=== PATIENT | female | born 1940 | race Caucasian/White ===

== ENCOUNTER 2016-10-14 06:46 | Day surgery (SDC) | payer MEDICARE ==
[2016-10-14 07:17] VITALS: RESP 16; TEMP 98.1
[2016-10-14] MEDS ORDERED: LACTATED RINGERS 1,000 ML IV ONE (07:29)
[2016-10-14] MEDS ORDERED: LIDOCAINE 1% 20 ML VIAL (10MG/ML) FOR IV START INTRADERMA ONE (07:29)
[2016-10-14] MEDS ORDERED: PROPOFOL 10 MG/ML 20 ML VIAL IV ONE (07:49)
--- NOTE | 2016-10-14 07:52 | P.GSHP ---
History of Present Illness H&P Date: 10/14/16 Chief Complaint: Screening colonoscopy This is a 68-year-old female referred from Dr. Solitario. Patient presents today for screening colonoscopy. Her last colonoscopy was prostate years ago. She's had some complaints of constipation. - Constitutional Constitutional: Reports as per HPI Medications and Allergies Home Medications Medication Instructions Recorded Confirmed Type Atorvastatin [Lipitor] 1 tab PO DAILY 10/14/16 10/14/16 History Allergies Allergy/AdvReac Type Severity Reaction Status Date / Time amoxicillin Allergy Unknown Verified 10/14/16 07:10 Surgical - Exam Vital Signs Temp Pulse Resp BP Pulse Ox 98.1 F 77 16 157/88 97 10/14/16 07:14 10/14/16 07:14 10/14/16 07:14 10/14/16 07:14 10/14/16 07:14 - General well developed, no distress - Eyes PERRL - ENT normal pinna - Neck no masses - Respiratory normal expansion - Cardiovascular Rhythm: regular - Abdomen Abdomen: soft, non tender Assessment and Plan Plan: We will perform screening colonoscopy.
--- NOTE | 2016-10-14 08:12 | P.OP ---
Date of Procedure: 10/14/16 Preoperative Diagnosis: Screening colonoscopy Postoperative Diagnosis: Diverticulosis External hemorrhoids Procedure(s) Performed: Colonoscopy Implants: Anesthesia: MAC Surgeon: Ace Quiñonez Pathology: none sent Condition: stable Disposition: PACU Indications for Procedure: Operative Findings: Description of Procedure: The patient's placed on the endoscopy table in the lateral position. She received IV sedation. Digital rectal exam was performed which revealed a few external hemorrhoids. The flexible colonoscope was then placed patient anus and passed throughout the entire colon. The ileocecal valve was visualized. The cecum, ascending and transverse colon appeared normal in the descending and sigmoid colon there is extensive diverticular changes. Scope was then brought back the rectum appeared normal. Scope was withdrawn for patient.
[2016-10-14] MEDS ORDERED: LIDOCAINE 1% 20 ML VIAL (10MG/ML) FOR IV START INTRADERMA PRN (08:23)
[2016-10-14] MEDS ORDERED: LACTATED RINGERS 1,000 ML IV SCH (08:23)
[2016-10-14 08:43] VITALS: BP 122/59; PULSE 72
== END 2016-10-14 08:57 | disposition home or self-care (01) ==
LOC: ORWHC2ENDO 06:46
PROVIDERS: ATTEND Surgery
DX: K57.30 Diverticulosis of large intestine without perforation or abscess without bleeding (principal); K64.4 Residual hemorrhoidal skin tags; E78.5 Hyperlipidemia, unspecified; Z87.891 Personal history of nicotine dependence; Z79.899 Other long term (current) drug therapy; Z88.0 Allergy status to penicillin
CPT/HCPCS: 45378; J2704

== ENCOUNTER → 2020-06-27 | Outpatient (CLI) | payer MEDICARE ==
--- NOTE | 2020-06-27 11:32 | CT ---
EXAMINATION TYPE: CT angio head neck DATE OF EXAM: 06/27/2020 HISTORY: Dizziness COMPARISON: None. CT DLP: Automated Exposure Control for Dose Reduction was Utilized. TECHNIQUE: CTA scan of the neck is performed , patient injected IV contrast, axial images are obtain ed, coronal and sagittal reformatted images are reviewed. Three-D reconstructed images are created on an independent workstation and reviewed. FINDINGS: Carotid/Vascular Structures: 70% stenosis of the right internal carotid artery at the origin secondar y to thick circumferential calcified plaque. 10% stenosis of the left internal carotid artery seconda ry to minimal atherosclerotic disease. There is direct origin of the left vertebral artery and is the dominant artery. Atherosclerotic plaqu e is seen in the distal third of the left vertebral artery. Proximal half of the right vertebral tony ry is not seen. There is no evidence of dural venous sinus thrombosis. There is 20-30% stenosis of the right subclavian artery secondary to atherosclerotic plaque at the or igin. There is no evidence of large vessel occlusion. No cerebral artery stenosis or dissection is seen. Th ere is no cerebral artery aneurysm. Anterior cerebral artery, middle cerebral artery, and posterior c erebral artery are patent. Other: No enhancing masses identified. IMPRESSION: 70% stenosis of the right internal carotid artery at the origin secondary to thick circum ferential plaque. Proximal half of the right vertebral artery is not visualized. Carotid Doppler exam ination is recommended. Specialist consultation is also recommended.
== END | disposition home or self-care (01) ==
LOC: RADCTMAIN 07:42
PROVIDERS: ATTEND Psychiatry & Neurology Neurology
DX: I65.21 Occlusion and stenosis of right carotid artery (principal)
CPT/HCPCS: 82565; 84520; 70496; 70498; 36415; Q9967

== ENCOUNTER → 2020-10-07 | Outpatient (CLI) | payer MEDICARE ==
--- NOTE | 2020-10-07 13:49 | US ---
EXAMINATION TYPE: US carotid duplex BILAT DATE OF EXAM: 10/07/2020 COMPARISON: 06/27/2020 CTA CLINICAL HISTORY: R42 Dizziness and giddiness; I65.21. dizziness. Memory loss. EXAM MEASUREMENTS: RIGHT: Peak Systolic Velocity (PSV) cm/sec ----- Right CCA: 58.5 ----- Right ICA: 116.0 ----- Right ECA: 69.5 ICA/CCA ratio: 2.0 RIGHT: End Diastole cm/sec ----- Right CCA: 15.6 ----- Right ICA: 31.2 ----- Right ECA: 4.6 LEFT: Peak Systolic Velocity (PSV) cm/sec ----- Left CCA: 77.3 ----- Left ICA: 88.1 ----- Left ECA: 77.6 ICA/CCA ratio: 1.1 LEFT: End Diastole cm/sec ----- Left CCA: 22.1 ----- Left ICA: 30.3 ----- Left ECA: 2.3 VERTEBRALS (direction of flow): Right Vertebral: Antegrade Left Vertebral: Antegrade Rhythm: Normal Bilateral wall thickening. No elevated velocities. Plaque in right bulb. Right significant stenosi s. IMPRESSION: 1. Bilateral intimal thickening with areas of atherosclerotic plaque. 2. Findings suggest a 50-69% stenosis involving the proximal right internal carotid artery. NASCET criteria was used in interpretation of this exam? Criteria for Assigning % of Stenosis / Diameter reduction (Estimation based on the indirect measurements of the internal carotid artery velocities (ICA PSV). 1. Normal (no stenosis)=ICA PSV < 125 cm/s: ratio < 2.0: ICA EDV<40 cm/s. 2. Less than 50% stenosis=ICA PSV < 125 cm/s: ratio < 2.0: ICA EDV<40 cm/s. 3. 50 to 69% stenosis=ICA PSV of 125 to 230 cm/s: ration 2.0 ? 4.0: ICA EDV 40-100 cm/s. 4. Greater than 70% stenosis to near occlusion= ICA PSV > 230 cm/s: ratio > 4.0: ICA EDV > 100 cm/s. 5. Near occlusion= ICA PSV velocities may be low or undetectable: variable ratio and ICA EDV. 6. Total occlusion=unable to detect flow.
== END | disposition home or self-care (01) ==
LOC: RADUSWWP 13:09
PROVIDERS: ATTEND Internal Medicine Cardiovascular Disease
DX: I25.10 Atherosclerotic heart disease of native coronary artery without angina pectoris (principal); R42 Dizziness and giddiness; R41.3 Other amnesia
CPT/HCPCS: 93880